=== PATIENT | female | born 1985 | race Caucasian/White ===

== ENCOUNTER 2021-02-23 19:49 | Emergency (ER) | payer SELFPAY ==
[~2021-02-23] VITALS: Ht 162.6 cm; Wt 62.0 kg
[2021-02-23 19:53] VITALS: BP 142/81
== END 2021-02-23 20:30 | disposition left against medical advice (07) ==
LOC: ER 19:49
DX: F15.129 Other stimulant abuse with intoxication, unspecified (principal)
CPT/HCPCS: 93005; 99283